=== PATIENT | male | born 1960 | race Caucasian/White ===

== ENCOUNTER 2019-01-16 21:05 | Emergency (ER) | payer OTHER ==
[2019-01-16] MEDS ORDERED: Bacitracin Oint 1 GM U/D Packet TOP ONE (21:20)
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
== END 2019-01-16 21:44 | disposition home or self-care (01) ==
LOC: MW.ED 21:05
DX: T25.222A Burn of second degree of left foot, initial encounter (principal); T31.0 Burns involving less than 10% of body surface; X16.XXXA Contact with hot heating appliances, radiators and pipes, initial encounter
CPT/HCPCS: 99282